=== PATIENT | female | born 1980 | race Caucasian/White ===

== ENCOUNTER 2024-08-12 06:21 | Day surgery (SDC) | payer SELFPAY ==
[2024-08-05 13:55] VITALS: BMI 21.7
[2024-08-12] MEDS ORDERED: BACITRACIN/POLYMYXIN OPH OINT 3.5 GM TUBE ONE (07:50)
[2024-08-12] MEDS ORDERED: BSS (NA/CA/MG/K) BALANCED SALT SOLUTION OPHTH SOLN 15 ML BOTTLE ONE (07:50)
[2024-08-12] MEDS ORDERED: POVIDONE-IODINE 5% OPHTHALMIC PREP 30 ML SOLUTION ONE (07:50)
[2024-08-12] MEDS ORDERED: LIDOCAINE 1%/EPI 1:100000 (20 ML MULTI DOSE VIAL) ONE (07:50)
[2024-08-12] MEDS ORDERED: ROCURONIUM BROMIDE 50 MG/5 ML SYRINGE ONE (07:53)
[2024-08-12] MEDS ORDERED: PROPOFOL 40 ML ONE (07:53)
[2024-08-12] MEDS ORDERED: SUCCINYLCHOLINE CHLORIDE 200 MG/10 ML SYRINGE ONE (07:53)
[2024-08-12] MEDS ORDERED: MIDAZOLAM HCL 2 MG/2 ML SINGLE DOSE VIAL ONE (07:53)
[2024-08-12] MEDS ORDERED: CLINDAMYCIN PHOSPHATE 600 MG/4 ML VIAL ONE (08:22)
[2024-08-12] MEDS ORDERED: PROPOFOL 20 ML ONE ×2 (08:47→09:45)
[2024-08-12] MEDS ORDERED: HYDROmorphone HCL/PF 1 MG/ML VIAL ONE (09:24)
[2024-08-12] MEDS ORDERED: oxyCODONE HCL 5 MG TABLET PO PRN ×2 (10:49)
[2024-08-12] MEDS ORDERED: ONDANSETRON 4 MG/2 ML VIAL IVPUSH PRN (10:49)
[2024-08-12] MEDS ORDERED: LACTATED RINGERS SOLUTION 1,000 ML IV SCH (11:00)
[2024-08-12] MEDS: ACETAMINOPHEN 1000 MG/100 ML BAG IVPB PRN (11:22)
[2024-08-12 12:24] VITALS: RESP 18; TEMP 97.4
[2024-08-12 12:32] VITALS: BP 121/71; PULSE 87
== END 2024-08-12 13:15 | disposition home or self-care (01) ==
LOC: FASU 06:21
PROVIDERS: ATTEND Surgery
PROC: 0W020ZZ Alteration of Face, Open Approach (ICD-10-PCS; principal; 2024-08-12 08:44)
DX: H57.813 Brow ptosis, bilateral (principal); H02.831 Dermatochalasis of right upper eyelid; H02.834 Dermatochalasis of left upper eyelid
CPT/HCPCS: 81025; 94760; J0131